=== PATIENT | male | born 1995 | race Caucasian/White ===

== ENCOUNTER 2019-05-01 21:30 | Emergency (ER) | payer OTHER, SELFPAY ==
[2019-05-01 21:56] VITALS: BP 146/73; PULSE 83; RESP 18; TEMP 36.8; O2SAT 98
--- NOTE | 2019-05-01 21:57 | ED.GENADUL_ITS ---
Discharge Plan Disposition Patient Disposition: HOME Condition: Good Discharge Details Chief Complaint: Orthopedic Clinical Impression: Contusion of foot, left, Laceration of foot, left Primary Care Provider: Jennifer Fuentes ED Provider: Thierno Farrar Home Meds and New Rx's Prescriptions: New cephalexin [Keflex] 500 mg capsule 500 mg PO QID 4 Days Qty: 16 RF: 0 Discharge Instructions Instructions: Crutch Instructions (ED), Laceration (ED), Foot Contusion (ED) Additional Instructions: Elevate your leg whenever possible. Monitor for signs of infection. Return to the emergency department if you develop redness, pain, swelling, fever, chills. Follow-up with your PCP if your pain does not resolve in the next 5 to 7 days. We have prescribed an antibiotic as an attempt to prevent infection but you will still need to observe for signs of infection. Medical Decision Making Fortunately no evidence of fracture interpreted by myself as well as the V rad. Foot soaked in basin with Hibiclens. Instructed to elevate whenever possible and watch for signs of infection. Will give prophylactic antibiotics short course. Crutches also given for comfort. GONZALEZ Fox presents for evaluation of injury to left plantar foot. He was tubing this evening when he jumped off a 4 foot embankment and landed in one foot of water onto a metal pipe. He sustained pain and swelling to medial aspect of left plantar midfoot along with 3 superficial lacerations. No significant bleeding. This occurred approximately 1 hour ago. No additional injuries. Denies weakness, numbness, decreased range of motion. General Date/Time Provider Initiated Documentation: 05/01/19 21:58 . Related Data Home Medications Medication Instructions Recorded Confirmed cephalexin [Keflex] 500 mg PO QID 4 Days #16 cap 05/01/19 Previous Rx's Medication Instructions Recorded cephalexin [Keflex] 500 mg PO QID 4 Days #16 cap 05/01/19 Allergies Allergy/AdvReac Type Severity Reaction Status Date / Time Sulfa (Sulfonamide Allergy Mild Hives Unverified 08/30/14 15:18 Antibiotics) Review of Systems Constitutional Denies chills, Denies fatigue, Denies fever(s) and Denies lethargy Eyes Denies loss of vision Cardiovascular Denies chest pain and Denies dyspnea Respiratory Denies cough and Denies dyspnea Gastrointestinal Denies abdominal pain, Denies nausea and Denies vomiting Musculoskeletal Denies back pain, Denies muscle weakness and Denies numbness Integumentary/Breasts Denies rash Neurologic Denies focal weakness, Denies loss of vision and Denies numbness Endocrine Denies fatigue Hematologic/Lymphatic Denies easy bruising PFSH Social History Smoking/Tobacco Use Status: Current every day Tobacco Type: cigarettes Smoking cigarettes per day: 10 and e-cigarettes Alcohol Intake: current Alcohol Intake frequency: a few times a week Alcohol type: other Drug use: Occasionally Substance use type: marijuana Do you feel safe at home: Yes Do you feel safe in your relationship?: Yes Exam Const General: cooperative, healthy appearing and no acute distress HENMT Head: normal to inspection Ears: hearing grossly normal bilaterally Eyes EOM: EOM intact bilaterally Neck Neck: normal visual inspection Resp Effort & Inspection: normal respiratory effort Auscultation: clear to auscultation bilaterally Cardio Rate: regular rate Rhythm: regular rhythm Heart Sounds: no murmurs GI Palpation: soft and nontender Skin Other: left plantar midfoot medial aspect swelling and tenderness, three ~6cm superficial linear lacerations. No bleeding. Site is cleen. No debris. Neuro General: alert, awake and oriented x3 Speech: speech normal Gait: normal gait Extrem General: normal to inspection Ankle/foot/toe images: 1. 2. 3. 4.
--- NOTE | 2019-05-01 22:24 | DI.RAD_ITS ---
SYMPTOM/DIAGNOSIS: MEDIAL PLANAR MID FOOT PAIN AFTER JUMPING ON PIPE LEFT FOOT: Three views. No priors. No acute bone or joint abnormality is identified. There is soft tissue swelling about the foot laterally. IMPRESSION: No acute fracture or dislocation.
--- NOTE | 2019-05-01 23:46 | DI.VRAD_ITS ---
EXAM: XR Left Foot Complete EXAM DATE/TIME: 05/01/2019 10:27 PM CLINICAL HISTORY: 23 years old, male; Other: Medial plantar midfoot pain after jumping on pipe TECHNIQUE: Imaging protocol: XR Left foot. Views: 3 or more views. COMPARISON: No relevant prior studies available. FINDINGS: Bones/joints: Normal. Soft tissues: Normal. IMPRESSION: No acute findings. Dictated and Authenticated by: Matthew Hand MD. Ordering:KT Pa MD
[2019-05-02 00:25] VITALS: BP 135/67; PULSE 89; RESP 18; O2SAT 99
== END 2019-05-02 00:24 | disposition home or self-care (01) ==
PROVIDERS: Emergency Provider Physician Assistant Medical; PCP Nurse Practitioner Family
DX: S91.312A Laceration without foreign body, left foot, initial encounter (principal); S90.32XA Contusion of left foot, initial encounter; W16.622A Jumping or diving into natural body of water striking bottom causing other injury, initial encounter
CPT/HCPCS: 90471; 99283; 73630; E0114

== ENCOUNTER 2023-06-30 08:05 | Emergency (ER) | payer OTHER, SELFPAY ==
[2023-06-30 08:13] VITALS: BP 129/94; PULSE 68; RESP 20; O2SAT 100
--- NOTE | 2023-06-30 08:38 | ED.GENADUL_ITS ---
Discharge Plan Disposition Patient Disposition: Home Condition: Stable Discharge Details Clinical Impression: Rash, Toxicodendron dermatitis Primary Care Provider: Jennifer Fuentes ED Provider: Hakeem So Home Meds and New Rx's Prescriptions: New hydrocortisone 1 % cream 1 applic topical BID 7 Days Qty: 28.4 1RF Discharge Instructions Instructions: Poison Dominga (ED) Additional Instructions: Please take Benadryl 50 mg by mouth at night. This medication will make you sleepy and will help with your itching. Please use hydrocortisone cream as prescribed. Please contact your primary care physician to arrange follow-up. Return to the ER immediately for any worsening or new concerning symptoms. 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 Distribution and characteristics of rash are consistent with Toxicodendron dermatitis. Plan to treat with Benadryl and hydrocortisone cream. Usual customary discharge instructions reviewed the patient. HPI General Mode of arrival: ambulatory . Date/Time Provider Initiated Documentation: 06/30/23 08:28 . Limitations to Documentation: no limitations . Information obtained by: patient . HPI Narrative: 27-year-old male here with chief complaint of rash. Rash started a few days ago. Patient notes he works outside [employer] and may have contacted [employer]. Rash is localized to his legs bilaterally from his sock line to his short line and his forearms. Patient does have fleas in his household. Related Data Home Medications Medication Instructions Recorded Confirmed hydrocortisone 1 % topical cream 1 applic topical BID 1 week #28.4 06/30/23 grams Previous Rx's Medication Instructions Recorded hydrocortisone 1 % topical cream 1 applic topical BID 1 week #28.4 06/30/23 grams Allergies Allergy/AdvReac Type Severity Reaction Status Date / Time Sulfa (Sulfonamide Allergy Mild Hives Unverified 06/30/23 08:14 Antibiotics) General Stated Complaint: RashLesion LI: 4 Review of Systems All systems reviewed & are unremarkable except as noted in HPI and below PFSH All Active Problems Rash (Acute) Toxicodendron dermatitis (Acute) Social History Smoking/Tobacco Use Status: Current every day Tobacco Type: e-cigarettes Smoking risk assessment performed?: Yes Alcohol Intake: current Alcohol Intake frequency: holidays/special occasions only Alcohol type: other Drug use: Occasionally Substance use type: marijuana Do you feel safe at home: Yes Do you feel safe in your relationship?: Yes Exam Const General: cooperative and no acute distress HENMT Mouth: moist mucous membranes Eyes Conjunctivae: normal conjunctivae Sclera: normal sclerae Resp Auscultation: clear to auscultation bilaterally, no rales, no rhonchi and no wheezes Cardio Rate: regular rate and not tachycardic Rhythm: regular rhythm Skin Rashes: rashes noted (Papular rash with excoriations lower extremities, sparsely distributed UEs) Course Vital Signs Vital signs: Vital Signs Pulse 68 06/30/23 08:13 Respiratory Rate 20 06/30/23 08:13 Blood Pressure 129/94 H 06/30/23 08:13 Pulse Oximetry 100 06/30/23 08:13 Pulse 68 06/30/23 08:13 Respiratory Rate 20 06/30/23 08:13 Respiratory Effort Normal, Non-Labored 06/30/23 08:15 Blood Pressure 129/94 H 06/30/23 08:13 Blood Pressure Position Sitting 06/30/23 08:13 Pulse Oximetry 100 06/30/23 08:13 Oxygen Delivery Method Room Air 06/30/23 08:13 Oxygen Flow Rate 0 06/30/23 08:13 Pain Level 0 06/30/23 08:13 PAWSS Have you Been Recently Intoxicated or Drunk Within the Last 30 days?: Yes Have you Ever Experienced Previous Episodes of Alcohol Withdrawal?: No Have you ever Experienced Withdrawal Seizures?: No Have you ever Experienced Delirium Tremens(DT)s?: No Have you ever undergone Alcohol Rehabilitation Treatment (i.e, inpt ot outpatient treatment programs)?: No Have you ever Experienced Blackouts?: No Have you ever Combined Alcohol with other Downers within the last 90 days?: No Have you ever Combined Alcohol with any other Substance of Abuse during the last 90 days?: Yes Positive Blood Alcohol level on Presentation? [PCS.BAL]: No Evidence of Increased Autonomic Activity (i.e. HR>120, tremor, sweating, agitation, nausea)?: No Result: 3
--- NOTE | 2023-06-30 10:08 | NUR.NOTE ---
Nursing Note: PT called wanting RX sent to [facility] pharmacy. Training Executive spoke with pharmacy and insurance will not cover OTC medications. Training Executive was unable to contact PT as numbers listed are incorrect.
== END 2023-06-30 08:58 | disposition home or self-care (01) ==
PROVIDERS: Emergency Provider Student in an Organized Health Care Education/Training Program; PCP Nurse Practitioner Family
DX: R21 Rash and other nonspecific skin eruption (principal); L29.9 Pruritus, unspecified; L23.7 Allergic contact dermatitis due to plants, except food; Y93.H2 Activity, gardening and landscaping
CPT/HCPCS: 99282

== ENCOUNTER 2024-07-13 18:22 | Emergency (ER) | payer SELFPAY ==
[2024-07-13 18:23] VITALS: BP 120/83; PULSE 68; RESP 16; TEMP 36.6; O2SAT 98
--- NOTE | 2024-07-13 18:32 | ED.GENADUL_ITS ---
Discharge Plan Disposition Patient Disposition: Home Condition: Good Discharge Details Clinical Impression: Cluster headache, episodic Primary Care Provider: None,None ED Provider: Chapincito Granados Meds and New Rx's Prescriptions: New prednisone 10 mg tablet See Taper PO DIRECTED Qty: 165 0RF Taper: Prednisone 10mg taper 100 mg Daily for 3 Days and 0 Hour 90 mg Daily for 3 Days and 0 Hour 80 mg Daily for 3 Days and 0 Hour 70 mg Daily for 3 Days and 0 Hour 60 mg Daily for 3 Days and 0 Hour 50 mg Daily for 3 Days and 0 Hour 40 mg Daily for 3 Days and 0 Hour 30 mg Daily for 3 Days and 0 Hour 20 mg Daily for 3 Days and 0 Hour 10 mg Daily for 3 Days and 0 Hour Discharge Instructions Instructions: Cluster Headache, Prednisone Additional Instructions: You were seen for headache which is very likely episodic cluster headaches. Your CT scan was reassuring. As we discussed high-dose steroid with taper is recommended for suppression of headaches. This medication can have significant side effects as we discussed. You will receive a call from care management as we try to obtain primary care coverage for you. You will need close follow-up and may need referral to neurology. If there are any issues in regards to side effects, neurologic changes, severe anxiety, other concerns return to ED. Referrals: Care Management [Provider Group] HPI General Mode of arrival: ambulatory . Date/Time Provider Initiated Documentation: 07/13/24 18:31 . Limitations to Documentation: no limitations . Information obtained by: patient and RN notes reviewed . HPI Narrative: Patient presents to ED with right-sided headache. Patient reports that in the last 2 weeks he has developed severe right sided headaches that involve the temporal and maxillary region. Described as sharp and pulsating in nature. Typically develops tearing from the right eye and rhinorrhea from the right nostril as well as congestion on that side. Symptoms last 1 to 2 hours and typically resolve after placing ice on his face and taking ibuprofen. They have been occurring daily since that started. Today woke up with this headache. Developed second episode this afternoon. This morning did have nausea and vomiting which was the first time. Denies any photosensitivity. Denies any recent head injuries. Has not typically had headaches in the past. Denies any numbness, visual change, weakness, gait disturbance, other neurologic changes. Related Data Home Medications ?Medication ?Instructions ?Recorded ?Confirmed prednisone 10 mg tablet See Taper PO DIRECTED #165 tabs 07/13/24 Previous Rx's ?Medication ?Instructions ?Recorded prednisone 10 mg tablet See Taper PO DIRECTED #165 tabs 07/13/24 Allergies Allergy/AdvReac Type Severity Reaction Status Date / Time Sulfa (Sulfonamide Allergy Mild Hives Unverified 07/13/24 18:28 Antibiotics) General Stated Complaint: Headache LI: 4 Review of Systems Narrative: Per HPI Exam Narrative Exam Narrative: Gen: WDWN male in NAD. Vitals per triage. HENT: NC/AT. Normal face. Eyes: PERRL and EOMI. VF in tact to confrontation. Neck: Supple, trachea midline. Chest: Normal respirations. Neuro: A+Ox3. Normal speech, mentation, gait. CN II-XII in tact. Normal strength. Normal sensation. FTN normal. Ext: No C/C/E. Course Vital Signs Vital signs: Vital Signs Temperature 97.9 F 07/13/24 18:23 Pulse 68 07/13/24 18:23 Respiratory Rate 16 07/13/24 18:23 Blood Pressure 120/83 07/13/24 18:23 Pulse Oximetry 98 07/13/24 18:23 Temperature 97.9 F 07/13/24 18:23 Temperature Source Tympanic 07/13/24 18:23 Pulse 68 07/13/24 18:23 Respiratory Rate 16 07/13/24 18:23 Blood Pressure 120/83 07/13/24 18:23 Blood Pressure Position Sitting 07/13/24 18:23 Pulse Oximetry 98 07/13/24 18:23 Oxygen Delivery Method Room Air 07/13/24 18:23 Oxygen Flow Rate 0 07/13/24 18:23 Pain Level 5 07/13/24 18:23 Medical Decision Making Patient presenting to ED with right-sided headache. These are associated with lacrimation and rhinorrhea on the right side. Headaches last 1 to 2 hours. His neurologic exam is completely intact. These headaches are highly suspicious for cluster headaches. Patient was placed on nonrebreather facemask as he is currently having symptoms. Given his lack of headache history will obtain noncontrast CT head, though may warrant MRI as outpatient based on further evaluation by PCP or neurology. Does not warrant laboratory studies at this time. CT head normal per radiology final read. Patient's headache essentially resolved with oxygen only. He does not currently have primary care. Per Up-to-Date suppressive therapy is high-dose steroids tapered over prolonged time. Verapamil is potentially helpful. Discussed side effects of prednisone at length with patient. Also discussed judicious use of acetaminophen and ibuprofen for headache so as to not develop rebound headaches. Will hold off on verapamil pending patient establishing primary care as well as to see how he responds to prednisone. Will place on referral list for care management to find patient primary care physician for follow-up in 1 to 2 weeks. He will likely require referral to neurology for further evaluation and management. Return precautions discussed. PFSH All Active Problems (Updated 07/13/24 @ 19:59 by Chapincito Granados MD) Cluster headache, episodic (Acute) Medical History No significant past medical history Social History Smoking/Tobacco Use Status: Current every day Tobacco Type: e-cigarettes Smoking risk assessment performed?: Yes Alcohol Intake: current Alcohol Intake frequency: holidays/special occasions only Alcohol type: other Drug use: Occasionally Substance use type: marijuana Housing: house Do you feel safe at home: Yes Do you feel safe in your relationship?: Yes Additional Social history: lives with girlfriend and step daughter
--- NOTE | 2024-07-13 18:45 | DI.CT_ITS ---
Exam(s) CT HEAD WO EXAM: CT HEAD WO CLINICAL HISTORY: new onset right side headache. TECHNIQUE: Imaging Protocol: Axial computed tomography images with coronal and sagittal reformatted images were created and reviewed COMPARISON: No exams were available for comparison FINDINGS: There are no skull fractures. There is no fluid in the visualized paranasal sinuses. There is no evidence of intracranial hemorrhage, mass effect, or shift of midline structures. There are no extra-axial fluid collections. The ventricles are not enlarged or shifted and there is no blo od within the ventricular system nor within the basal cisterns. IMPRESSION: No acute intracranial findings on this noninfused CT scan of the brain. Report called by myself to ER physician 07/13/2024 at 7:20 p.m. RADIATION DOSE DELIVERED: 908.95mGy.cm Total DLP DATA REPOSITORY: All CT scans at this facility are submitted to the National Radiology Data Registry (NRDR) Dose Index Registry (DIR) with the [employer] (ACR). RADIATION OPTIMIZATION: All CT scans at this facility use at least one of these dose optimization te chniques: automated exposure control; mA and/or kV adjustment per patient size (includes targeted exa ms where dose is matched to clinical indication); or iterative reconstruction.
[2024-07-13 18:51] VITALS: O2SAT 98
--- OUTSIDE RECORDS SUMMARY | 2024-07-13 19:34 | XMS_ITS | Encounter Summary ---
Author Organization [facility] Address [facility] [place] [address] Care Team Providers Care Park Worker Supervisor Name Role Phone Yahaira Pedro MD Primary Care Provider [phone] Reason for Visit * Reason Comments Skin Problem Encounter Details Date Type Department Care Team (Late st Contact Info) Description 07/03/2011 4:00 PM EDT Office Visit Dermatology [address] [place] [address] [address] [place], [place] [id number] Champ Neumann MD [address], [place] [address] Keratosis pilaris (Primary Dx) Social History Tobacco Use Types Packs/Day Years Used Date Smoking Tobacco: Never Sex and Gender Information Value Date Recorded Sex Assigned at Not on file Gender Identity Not on file Sexual Orientation Not on file documented as of this encounter Progress Notes * Champ Neumann MD - 07/03/2011 4:20 PM EDT Problem: Followup keratosis pilaris. Ruddy follows up and is now 15. He is here today with his mother Bethany and his sister Briseyda. Mom states that the affected areas have spread now to include more of his face which was not affected so much before. The Lac-Hydrin 12% Cream did help but he has run out of it and they would like to have refills. Physical examination reveals an overweight 15-year-old boy who has keratosis pilaris almost circumferentially around the arms, on the lateral cheeks and diffusely over his back. He appears also to have some closed comedonal lesions spread diffusely as well. He does not have any inflammatory papules or pustules. He does not have acne per se yet. Assessment & Plan: Keratosis pilaris and closed comedonal acneform papules. a. Recommended that we resume the Lac-Hydrin 12% Cream applying on a q. day/BID basis, a 280gm twin-pack was dispensed with p.r.n. refills. He lives in two households so this will make it easier for him to be compliant with the regimen. b. Explained that should he start to get more inflammatory lesions, will need to consider other treatment options more specific for acne vulgaris. c. RTC p.r.n. Cc: Yahaira Pedro MD documented in this encounter Plan of Treatment Not on file documented as of this encounter Visit Diagnoses Diagnosis Keratosis pilaris- Primary Other specified congenital anomaly of skin documented in this encounter Care Teams Park Worker Supervisor Relationship Specialty Start Date End Date Yahaira Pedro MD PCP - General 09/09/10 06/09/17 documented as of this encounter
--- OUTSIDE RECORDS SUMMARY | 2024-07-13 19:34 | XMS_ITS | Clinical Summary ---
Author Organization [facility] Address [facility] [address] [place] [address] Care Team Providers Care Plate Cleaner Name Role Phone Unknown Primary Care Provider Unavailabl e Allergies No known active allergies Medications Medication Sig Dispensed Refills Start Date End Date Status methylphenidate (CONCERTA) 54 mg CR tablet 54 MG = 1 Tablet(s), PO, Once daily 12/17/2009 Active Active Problems Problem Noted Date Diagnosed Date Keratosis pilaris 2011 Social History Tobacco Use Types Packs/Day Years Used Date Smoking Tobacco: Never Sex and Gender Information Value Date Recorded Sex Assigned at Not on file Gender Identity Not on file Sexual Orientation Not on file Plan of Treatment Health Maintenance Due Date Last Done Comments HIV screen 2015 Hepatitis C Screening 2015 Hepatitis B vaccine (0-59 yrs) (1) 2016 Tdap adult (Retired) 2016 Tetanus vaccine (Retired) 2016 Covid-19 Vaccine ( season) 2024 Influenza (Flu) vaccine (1 o f 1 - Influenza standard series) 06/18/2024 Care Teams Plate Cleaner Relationship Specialty Start Date End Date Unknown None PCP - General 06/10/17
--- OUTSIDE RECORDS SUMMARY | 2024-07-13 19:34 | XMS_ITS | Encounter Summary ---
Author Organization [facility] Address [facility] [place] [address] Care Team Providers Care Wind Project Manager Name Role Phone Yahaira Pedro MD Primary Care Provider [phone] Encounter Details Date Type Department Care Team (Late st Contact Info) Description 2011 Abstract Dermatology [address] [place], [place] [id number] Tammy Gilbert, RN Social History Tobacco Use Types Packs/Day Years Used Date Smoking Tobacco: Never Assessed Sex and Gender Information Value Date Recorded Sex Assigned at Not on file Gender Identity Not on file Sexual Orientation Not on file documented as of this encounter Plan of Treatment Not on file documented as of this encounter Visit Diagnoses Not on filedocumented in this encounter Care Teams Wind Project Manager Relationship Specialty Start Date End Date Yahaira Pedro MD PCP - General 09/09/10 06/09/17 documented as of this encounter
[2024-07-13 20:15] VITALS: BP 132/87; PULSE 68; RESP 18; TEMP 36.7; O2SAT 98
--- NOTE | 2024-07-14 10:54 | NUR.NOTE ---
Nursing Note: Pt called to let us know that he was seen here last night and was supposed to received a prescription, however, the pharmacy told him that they never received it. When examining the discharge, it was stated that he should take the prednisone taper as prescribed and it appeared as though it was sent to [facility] in [place]. I spoke with the pharmacist at [facility] and he confirmed that he did not receive a prescription for the patient. Verbal order given for the prednisone taper per directions on the discharge. Pt aware and pharmacist informed me that he would work on it for the patient now.
== END 2024-07-13 20:16 | disposition home or self-care (01) ==
PROVIDERS: Emergency Provider Emergency Medicine
DX: G44.019 Episodic cluster headache, not intractable (principal)
CPT/HCPCS: 99284; 70450; 99283